=== PATIENT | female | born 1950 | race Caucasian/White ===

== ENCOUNTER 2016-12-14 18:47 | Emergency (ER) | payer BC, OTHER ==
[~2016-12-14] VITALS: Ht 157.5 cm; Wt 62.9 kg
[2016-12-14] MEDS ORDERED: OXYcodone/APAP 5/325MG TABLET ONE (19:19)
[2016-12-14] MEDS ORDERED: OXYcodone/APAP 5/325MG TABLET PO ONE (19:30)
[2016-12-14 21:42] VITALS: BP 158/89
== END 2016-12-14 21:45 | disposition home or self-care (01) ==
LOC: ED 21:10
DX: S40.011A Contusion of right shoulder, initial encounter (principal); S70.01XA Contusion of right hip, initial encounter; S40.021A Contusion of right upper arm, initial encounter; I10 Essential (primary) hypertension; E11.9 Type 2 diabetes mellitus without complications; W18.40XA Slipping, tripping and stumbling without falling, unspecified, initial encounter; Y93.89 Activity, other specified; Y92.89 Other specified places as the place of occurrence of the external cause; Y99.0 Civilian activity done for income or pay
CPT/HCPCS: 99284

== ENCOUNTER 2016-12-18 12:34 | Emergency (ER) | payer OTHER ==
[~2016-12-18] VITALS: Ht 157.5 cm; Wt 63.9 kg
[2016-12-18] MEDS ORDERED: IBUPROFEN 200 MG TABLET PO ONE (15:30)
[2016-12-18] MEDS ORDERED: IBUPROFEN 200 MG TABLET ONE (15:59)
== END 2016-12-18 17:19 | disposition home or self-care (01) ==
LOC: ED 17:13
DX: M25.411 Effusion, right shoulder (principal); I10 Essential (primary) hypertension; E11.9 Type 2 diabetes mellitus without complications
CPT/HCPCS: 99284

== ENCOUNTER 2017-01-13 10:29 | Emergency (ER) | payer BC, OTHER ==
[~2017-01-13] VITALS: Ht 157.5 cm; Wt 63.4 kg
[2017-01-13 10:37] VITALS: BP 151/91
== END 2017-01-13 11:08 | disposition left against medical advice (07) ==
LOC: ED 11:02
DX: M25.511 Pain in right shoulder (principal); Z53.21 Procedure and treatment not carried out due to patient leaving prior to being seen by health care provider

== ENCOUNTER 2017-07-19 11:40 | Emergency (ER) | payer BC ==
[~2017-07-19] VITALS: Ht 157.5 cm; Wt 63.6 kg
[2017-07-19 11:52] VITALS: BP 172/92
[2017-07-19] MEDS ORDERED: FLUCONAZOLE 100 MG TABLET PO ONE (12:30)
[2017-07-19 13:14] LABS: MICROSCOPIC AUTO
[2017-07-19 13:16] LABS: CULTURE INDICATED? YES
== END 2017-07-19 13:59 | disposition home or self-care (01) ==
LOC: ED 12:38
DX: B37.3 Candidiasis of vulva and vagina (principal); E11.65 Type 2 diabetes mellitus with hyperglycemia; I10 Essential (primary) hypertension
CPT/HCPCS: 81001; 82962; 87086; 99284

== ENCOUNTER 2018-05-02 08:08 | Inpatient (IN) | payer MEDICARE, BC ==
[~2018-05-02] VITALS: Ht 157.5 cm; Wt 66.1 kg
[2018-05-02] MEDS ORDERED: METFORMIN (08:43)
[2018-05-02] MEDS ORDERED: OXYB5TAB7 PO (08:43)
[2018-05-02] MEDS ORDERED: GLIP5TAB10 PO (08:43)
[2018-05-02] MEDS ORDERED: ONDANSETRON 2MG/ML, 2ML ONE (08:57)
[2018-05-02] MEDS ORDERED: ONDANSETRON 2MG/ML, 2ML IVPush ONE (09:00)
[2018-05-02] MEDS ORDERED: SODIUM CHLORIDE FLUSH 10ML SYR IVF ONE (09:00)
[2018-05-02 09:15] LABS: BASOPHILS % (AUTO) 0 % (0-1); EOSINOPHILS # (AUTO) 0.08 x10^3/uL (0-0.4); EOSINOPHILS % (AUTO) 1 % (1-7); LYMPHOCYTES # (AUTO) 0.94 x10^3/uL (1-3.4); LYMPHOCYTES % (AUTO) 6 % (22-44); MD NO; MEAN CORPUSCULAR HEMOGLOBIN 28.1 pg (27.0-34.8); MEAN CORPUSCULAR HGB CONC 33.4 g/dL (32.4-35.8); MEAN CORPUSCULAR VOLUME 84.2 fL (80-100); MEAN PLATELET VOLUME 8.7 fL (7.4-10.4); MONOCYTES # (AUTO) 1.02 x10^3/uL (0.2-0.8); MONOCYTES % (AUTO) 6 % (2-9); NEUTROPHILS % (AUTO) 88 % (42-75); PLATELET COUNT 211 x10^3/uL (130-400); RED BLOOD COUNT 5.17 x10^6/uL (3.82-5.3); RED CELL DISTRIBUTION WIDTH 12.6 % (9.6-15.2)
[2018-05-02 09:27] LABS: CULTURE INDICATED? YES; MICROSCOPIC INDICATED
[2018-05-02 09:27] LABS: ALBUMIN 3.8 g/dL (3.4-5.0); ANION GAP 9 mmol/L (5-15); CALCIUM 8.6 mg/dL (8.5-10.1); CHLORIDE 101 mmol/L (98-107); INTERNATIONAL NORMALIZED RATIO 0.99 (0.93-1.1); PROTHROMBIN TIME 10.3 Seconds (9.6-11.5)
[2018-05-02 09:31] LABS: ALANINE AMINOTRANSFERASE 32 U/L (12-78); ALKALINE PHOSPHATASE 135 U/L (45-117); BILIRUBIN,TOTAL 0.7 mg/dL (0.2-1.0); CREATININE 0.78 mg/dL (0.55-1.02); TOTAL PROTEIN 7.8 g/dL (6.4-8.2)
[2018-05-02] MEDS ORDERED: CEFTRIAXONE 1,000 MG in SODIUM CHLORIDE 0.9% 50 ML IVPB ONE (10:00)
[2018-05-02] MEDS ORDERED: SODIUM CHLORIDE 0.9% 1,000ML IVBOLUS ONE (10:00)
[2018-05-02] MEDS ORDERED: CEFTRIAXONE PMX 1GM/50ML 50 ML ONE (10:01)
[2018-05-02] MEDS ORDERED: SODIUM CHLORIDE 0.9% 1,000 ML IV ONE (10:07)
[2018-05-02 10:11] LABS: RAPID INFLUENZA A Negative (Negative); RAPID INFLUENZA B Negative (Negative)
[2018-05-02] MEDS ORDERED: SODIUM CHLORIDE FLUSH 10ML SYR IVF PRN (10:30)
[2018-05-02] MEDS ORDERED: ONDANSETRON ODT 4 MG PO PRN (11:00)
[2018-05-02] MEDS ORDERED: ACETAMINOPHEN 325 MG TABLET PO PRN (11:00)
[2018-05-02] MEDS ORDERED: ONDANSETRON 2MG/ML, 2ML IVPush PRN (11:00)
[2018-05-02 11:10] VITALS: BP 131/80
[2018-05-02 11:23] LABS: HEMOGLOBIN A1C 10.4 % (4.2-6.3)
[2018-05-02] MEDS: IBUPROFEN 600 MG TABLET PO PRN (12:30)
[2018-05-02] MEDS: HEPARIN 5,000 UNITS/ML, 1ML SQ SCH ×2 (12:30→22:27)
[2018-05-02 15:01] VITALS: BP 99/62
[2018-05-02] MEDS: INSULIN LISPRO 100 UNITS/ML, PEN SQ-INSULIN SCH ×3 (16:00→23:28)
[2018-05-02] MEDS: SODIUM CHLORIDE 0.9% 1,000 ML IV SCH (16:21)
[2018-05-02 19:04] VITALS: BP 101/62
[2018-05-02] MEDS: CEFTRIAXONE PMX 2GM/50ML 50 ML IV SCH (22:27)
[2018-05-03 01:12] VITALS: BP 121/74
[2018-05-03] MEDS: SODIUM CHLORIDE 0.9% 1,000 ML IV SCH ×3 (01:22→16:11)
[2018-05-03] MEDS: IBUPROFEN 600 MG TABLET PO PRN ×4 (01:22→22:08)
[2018-05-03 05:56] LABS: ALBUMIN 2.7 g/dL (3.4-5.0); ANION GAP 8 mmol/L (5-15); CALCIUM 7.6 mg/dL (8.5-10.1); CHLORIDE 112 mmol/L (98-107)
[2018-05-03 05:57] LABS: BASOPHILS # (AUTO) 0.02 x10^3/uL (0-0.1); BASOPHILS % (AUTO) 0 % (0-1); EOSINOPHILS % (AUTO) 1 % (1-7); LYMPHOCYTES # (AUTO) 2.07 x10^3/uL (1-3.4); LYMPHOCYTES % (AUTO) 21 % (22-44); MD NO; MEAN CORPUSCULAR HEMOGLOBIN 28.9 pg (27.0-34.8); MEAN CORPUSCULAR HGB CONC 33.9 g/dL (32.4-35.8); MEAN CORPUSCULAR VOLUME 85.4 fL (80-100); MONOCYTES # (AUTO) 1.06 x10^3/uL (0.2-0.8); MONOCYTES % (AUTO) 11 % (2-9); NEUTROPHILS % (AUTO) 67 % (42-75); PLATELET COUNT 145 x10^3/uL (130-400); RED BLOOD COUNT 3.97 x10^6/uL (3.82-5.3); RED CELL DISTRIBUTION WIDTH 13.2 % (9.6-15.2)
[2018-05-03 06:10] LABS: ALANINE AMINOTRANSFERASE 20 U/L (12-78); ALKALINE PHOSPHATASE 85 U/L (45-117); BILIRUBIN,TOTAL 0.5 mg/dL (0.2-1.0); CREATININE 0.67 mg/dL (0.55-1.02); TOTAL PROTEIN 5.9 g/dL (6.4-8.2)
[2018-05-03] MEDS: HEPARIN 5,000 UNITS/ML, 1ML SQ SCH ×3 (06:24→22:08)
[2018-05-03 07:02] VITALS: BP 118/69
[2018-05-03] MEDS: INSULIN LISPRO 100 UNITS/ML, PEN SQ-INSULIN SCH ×4 (08:27→22:09)
[2018-05-03 12:31] VITALS: BP 132/78
[2018-05-03 19:17] VITALS: BP 140/66
[2018-05-03] MEDS: CEFTRIAXONE PMX 2GM/50ML 50 ML IV SCH (21:55)
[2018-05-04] MEDS: SODIUM CHLORIDE 0.9% 1,000 ML IV SCH ×3 (01:05→16:00)
[2018-05-04 02:15] VITALS: BP 134/78
[2018-05-04 05:28] LABS: BASOPHILS # (AUTO) 0.01 x10^3/uL (0-0.1); BASOPHILS % (AUTO) 0 % (0-1); EOSINOPHILS # (AUTO) 0.15 x10^3/uL (0-0.4); EOSINOPHILS % (AUTO) 2 % (1-7); LYMPHOCYTES # (AUTO) 1.85 x10^3/uL (1-3.4); LYMPHOCYTES % (AUTO) 24 % (22-44); MD NO; MEAN CORPUSCULAR HEMOGLOBIN 28.7 pg (27.0-34.8); MEAN CORPUSCULAR HGB CONC 33.4 g/dL (32.4-35.8); MEAN CORPUSCULAR VOLUME 85.9 fL (80-100); MONOCYTES # (AUTO) 0.79 x10^3/uL (0.2-0.8); MONOCYTES % (AUTO) 10 % (2-9); NEUTROPHILS # (AUTO) 4.94 x10^3/uL (1.8-6.8); NEUTROPHILS % (AUTO) 64 % (42-75); PLATELET COUNT 152 x10^3/uL (130-400); RED BLOOD COUNT 4.31 x10^6/uL (3.82-5.3); RED CELL DISTRIBUTION WIDTH 12.8 % (9.6-15.2)
[2018-05-04 05:44] LABS: ANION GAP 8 mmol/L (5-15); CALCIUM 7.9 mg/dL (8.5-10.1); CHLORIDE 110 mmol/L (98-107); CREATININE 0.54 mg/dL (0.55-1.02)
[2018-05-04] MEDS: HEPARIN 5,000 UNITS/ML, 1ML SQ SCH ×2 (06:27→13:33)
[2018-05-04 06:59] VITALS: BP 149/90
[2018-05-04] MEDS: INSULIN LISPRO 100 UNITS/ML, PEN SQ-INSULIN SCH ×2 (07:43→11:28)
[2018-05-04 12:54] VITALS: BP 186/92
[2018-05-04 13:23] VITALS: BP 171/78
[2018-05-04] MEDS: IBUPROFEN 600 MG TABLET PO PRN (13:32)
[2018-05-04] MEDS ORDERED: CEFD300C37 PO (14:20)
[2018-05-04] MEDS ORDERED: POTASSIUM CHLORIDE 20 MEQ TAB.ER.PRT PO ONE (14:30)
[2018-05-04 14:40] VITALS: BP 154/88
== END 2018-05-04 17:15 | disposition home or self-care (01) | DRG 872 ==
LOC: ED 10:06 → EDIP 10:07 → ED 10:42 → 4NOR 11:17 → ED 13:20 → 4NOR 13:20 → DCLOUNGE 05-04 16:46
PROVIDERS: ADMIT Internal Medicine; ATTEND Internal Medicine
DX: A41.9 Sepsis, unspecified organism (principal); E87.1 Hypo-osmolality and hyponatremia; N10 Acute pyelonephritis; E87.2 Acidosis; I10 Essential (primary) hypertension; D64.9 Anemia, unspecified; E11.65 Type 2 diabetes mellitus with hyperglycemia; E83.39 Other disorders of phosphorus metabolism; E87.6 Hypokalemia; K80.20 Calculus of gallbladder without cholecystitis without obstruction; B95.2 Enterococcus as the cause of diseases classified elsewhere; B96.20 Unspecified Escherichia coli [E. coli] as the cause of diseases classified elsewhere; R65.10 Systemic inflammatory response syndrome (SIRS) of non-infectious origin without acute organ dysfunction; Z79.84 Long term (current) use of oral hypoglycemic drugs
CPT/HCPCS: 36415; 76700; 80048; 80053; 81001; 82962; 83036; 83605; 83690; 83735; 84100; 84145; 84443; 85025; 85610; 87040; 87077; 87086; 87186; 87400; 96374; 96375; 99285; G0378; J0696; J1644; J2405; J1815; J7030

== ENCOUNTER 2020-05-21 17:48 | Emergency (ER) | payer BC, OTHER ==
[~2020-05-21] VITALS: Ht 157.5 cm; Wt 62.1 kg
[~2020-05-21 17:48] MED LIST: CEFD300C37 PO; GLIP5TAB10 PO; METFORMIN; OXYB5TAB10 PO
--- NOTE | 2020-05-21 18:24 | NUR ---
PT HAS CO RUQ PAIN FOR 2 WEEKS. PT HAS BP. MAO CP, SOB OR VISION CHANGES OR [place]. DENIES HX OF HTN AND IS NOT ON ANY MEDICATION FOR HTN. PT PLACED ON CATCHER PLUG.
[2020-05-21 18:59] LABS: BASOPHILS % (AUTO) 1 % (0-1); EOSINOPHILS % (AUTO) 3 % (1-7); LYMPHOCYTES % (AUTO) 40 % (22-44); MEAN CORPUSCULAR HEMOGLOBIN 29.6 pg (27.0-34.8); MEAN CORPUSCULAR HGB CONC 34.5 g/dL (32.4-35.8); MEAN PLATELET VOLUME 9.2 fL (7.4-10.4); MONOCYTES % (AUTO) 7 % (2-9); NEUTROPHILS % (AUTO) 49 % (42-75); PLATELET COUNT 224 x10^3/uL (130-400); RED BLOOD COUNT 5.16 x10^6/uL (3.82-5.3); RED CELL DISTRIBUTION WIDTH 12.4 % (9.6-15.2)
[2020-05-21] MEDS ORDERED: HYDROmorphone 2 MG/ML, 1ML IVPush PRN (19:00)
[2020-05-21] MEDS ORDERED: SODIUM CHLORIDE FLUSH 10ML SYR IVF ONE (19:00)
--- NOTE | 2020-05-21 19:06 | NUR ---
Late entry for 1850: Report from TIERRA Albright. Pt in imaging.
[2020-05-21 19:10] LABS: ALBUMIN 4.3 g/dL (3.4-5.0); ANION GAP 8 mmol/L (5-15); CALCIUM 9.4 mg/dL (8.5-10.1); CHLORIDE 106 mmol/L (98-107)
[2020-05-21 19:16] LABS: ALANINE AMINOTRANSFERASE 28 U/L (12-78); ALKALINE PHOSPHATASE 126 U/L (45-117); BILIRUBIN,TOTAL 0.5 mg/dL (0.2-1.0); CREATININE 0.77 mg/dL (0.55-1.02); MD NO; TOTAL PROTEIN 8.4 g/dL (6.4-8.2)
[2020-05-21 19:53] LABS: MICROSCOPIC INDICATED
[2020-05-21] MEDS ORDERED: CEFOTETAN PMX 1GM/50ML 50 ML IVPB ONE (20:30)
[2020-05-21] MEDS ORDERED: FENTANYL PF 100 MCG/2ML ONE (21:03)
[2020-05-21] MEDS ORDERED: HYDROmorphone 1 MG/ML, 1ML INJ ONE (21:47)
[2020-05-21 22:36] VITALS: BP 156/90
--- NOTE | 2020-05-22 06:42 | NUR ---
LATE ENTRY SUMMARY NOTE: PT WAS TO BE ADMITTED FOR SX. PT'S RAPID COVID RESULTED POSITIVE. MD ALAMO MADE AWARE. MD ALAMO BACK TO BEDSIDE TO UPDATE PT ON POC. POC INCLUDES D/C WITH MEDICATIONS AND FOLLOW UP FOR SURGERY. ALL QUESTIONS ANSWERED, PT WITH NADN. FAMILY AT BEDSIDE.
== END 2020-05-21 22:38 | disposition home or self-care (01) ==
LOC: ED 19:43
DX: U07.1 COVID-19 (principal); K80.20 Calculus of gallbladder without cholecystitis without obstruction; I10 Essential (primary) hypertension; Z72.9 Problem related to lifestyle, unspecified; R94.31 Abnormal electrocardiogram [ECG] [EKG]; E11.9 Type 2 diabetes mellitus without complications
CPT/HCPCS: 36415; 74022; 76700; 80053; 81001; 83605; 83690; 85025; 87077; 87086; 87186; 87635; 93005; 96374; 99285; J1170; J3010

== ENCOUNTER 2020-05-29 11:29 | Inpatient (IN) | payer BC, OTHER ==
[~2020-05-29] VITALS: Ht 157.5 cm; Wt 60.3 kg
[2020-05-29 12:35] LABS: BASOPHILS % (AUTO) 1 % (0-1); EOSINOPHILS % (AUTO) 2 % (1-7); LYMPHOCYTES % (AUTO) 32 % (22-44); MEAN CORPUSCULAR HEMOGLOBIN 29.3 pg (27.0-34.8); MEAN CORPUSCULAR HGB CONC 33.9 g/dL (32.4-35.8); MEAN PLATELET VOLUME 9.1 fL (7.4-10.4); MONOCYTES % (AUTO) 7 % (2-9); NEUTROPHILS % (AUTO) 59 % (42-75); PLATELET COUNT 230 x10^3/uL (130-400); RED BLOOD COUNT 5.22 x10^6/uL (3.82-5.3); RED CELL DISTRIBUTION WIDTH 12.5 % (9.6-15.2)
[2020-05-29 12:36] LABS: MD NO
[2020-05-29 12:42] LABS: CHLORIDE 107 mmol/L (98-107)
[2020-05-29 12:47] LABS: ALANINE AMINOTRANSFERASE 26 U/L (12-78); ALBUMIN 4.1 g/dL (3.4-5.0); ALKALINE PHOSPHATASE 101 U/L (45-117); ANION GAP 4 mmol/L (5-15); BILIRUBIN,TOTAL 0.5 mg/dL (0.2-1.0); CALCIUM 9.6 mg/dL (8.5-10.1); CREATININE 0.65 mg/dL (0.55-1.02); TOTAL PROTEIN 8.1 g/dL (6.4-8.2)
[2020-05-29] MEDS ORDERED: MORPHINE SULFATE 4 MG/ML, 1ML IVPush PRN (15:30)
[2020-05-29] MEDS ORDERED: ONDANSETRON 2MG/ML, 2ML IVPush ONE (15:30)
[2020-05-29] MEDS ORDERED: MORPHINE SULFATE 4 MG/ML, 1ML ONE (15:30)
[2020-05-29] MEDS ORDERED: SODIUM CHLORIDE FLUSH 10ML SYR IVF ONE (15:30)
[2020-05-29] MEDS ORDERED: ONDANSETRON 2MG/ML, 2ML ONE (15:30)
--- NOTE | 2020-05-29 16:42 | NUR ---
patient arrives with abdominal pain for 13. she states was suppose to have surgery today for gallbladder. Addendum: 05/29/20 at 1844 by MIREILLE patient arrives with 13 days abdominal pain
[2020-05-29] MEDS ORDERED: OMNIPAQUE 350 MG/ML, 100ML BOTTLE ONE (17:07)
[2020-05-29 18:04] LABS: MICROSCOPIC INDICATED
--- NOTE | 2020-05-29 18:16 | NUR ---
angelina at bedside.
--- NOTE | 2020-05-29 19:08 | NUR ---
report to kenan
--- NOTE | 2020-05-29 19:14 | NUR ---
report and care received on pt. pt comfortable and resting, on cr monitor. no distress at this time.
[2020-05-29] MEDS ORDERED: ONDANSETRON 2MG/ML, 2ML IVPush PRN (21:30)
[2020-05-29] MEDS ORDERED: PROMETHAZINE 25 MG/ML, 1ML IM PRN (21:30)
[2020-05-29] MEDS ORDERED: hydrALAzine 20 MG/ML, 1ML IVPush PRN (21:30)
[2020-05-29] MEDS ORDERED: HYDROmorphone 2 MG/ML, 1ML IVPush PRN (21:30)
[2020-05-29 21:45] LABS: INTERNATIONAL NORMALIZED RATIO 1.01 (0.93-1.1); PROTHROMBIN TIME 10.7 Seconds (9.6-11.5)
[2020-05-29 22:23] VITALS: BP 178/91
[2020-05-29] MEDS: CEFTRIAXONE PMX 1GM/50ML 50 ML IV SCH (22:41)
[2020-05-29 22:50] VITALS: BP 120/77
[2020-05-30 01:28] VITALS: BP 126/81
[2020-05-30] MEDS: OXYcodone IR 5MG TABLET PO PRN ×2 (03:03→19:47)
[2020-05-30] MEDS ORDERED: OMNIPAQUE 350 MG/ML, 75ML BOTTLE ONE (03:04)
[2020-05-30 06:25] LABS: BASOPHILS % (AUTO) 0 % (0-1); EOSINOPHILS % (AUTO) 3 % (1-7); LYMPHOCYTES % (AUTO) 23 % (22-44); MEAN CORPUSCULAR HEMOGLOBIN 29.1 pg (27.0-34.8); MEAN CORPUSCULAR HGB CONC 33.5 g/dL (32.4-35.8); MEAN PLATELET VOLUME 9.1 fL (7.4-10.4); MONOCYTES % (AUTO) 7 % (2-9); NEUTROPHILS % (AUTO) 67 % (42-75); PLATELET COUNT 216 x10^3/uL (130-400); RED BLOOD COUNT 5.01 x10^6/uL (3.82-5.3); RED CELL DISTRIBUTION WIDTH 12.6 % (9.6-15.2)
[2020-05-30 06:28] LABS: MD NO
[2020-05-30 06:37] LABS: CHLORIDE 106 mmol/L (98-107)
[2020-05-30 06:44] LABS: ALANINE AMINOTRANSFERASE 26 U/L (12-78); ALBUMIN 3.7 g/dL (3.4-5.0); ALKALINE PHOSPHATASE 84 U/L (45-117); ANION GAP 8 mmol/L (5-15); BILIRUBIN,TOTAL 0.6 mg/dL (0.2-1.0); CALCIUM 8.9 mg/dL (8.5-10.1); CREATININE 0.74 mg/dL (0.55-1.02); TOTAL PROTEIN 7.6 g/dL (6.4-8.2)
[2020-05-30 06:56] VITALS: BP 126/81
[2020-05-30] MEDS: INSULIN LISPRO 100 UNITS/ML, PEN SQ-INSULIN SCH ×4 (07:00→19:54)
[2020-05-30] MEDS: SENNA/DOCUSATE TABLET PO SCH (09:28)
[2020-05-30 12:12] VITALS: BP 127/80
[2020-05-30 19:21] VITALS: BP 135/77
[2020-05-30] MEDS: CEFTRIAXONE PMX 1GM/50ML 50 ML IV SCH (21:16)
[2020-05-31] VITALS (13 sets, daily range): BP systolic 120–171; BP diastolic 69–96
[2020-05-31 06:01] LABS: BASOPHILS % (AUTO) 1 % (0-1); EOSINOPHILS % (AUTO) 4 % (1-7); LYMPHOCYTES % (AUTO) 34 % (22-44); MEAN CORPUSCULAR HEMOGLOBIN 29.1 pg (27.0-34.8); MEAN CORPUSCULAR HGB CONC 33.7 g/dL (32.4-35.8); MEAN PLATELET VOLUME 9.1 fL (7.4-10.4); MONOCYTES % (AUTO) 8 % (2-9); NEUTROPHILS % (AUTO) 55 % (42-75); PLATELET COUNT 198 x10^3/uL (130-400); RED BLOOD COUNT 4.93 x10^6/uL (3.82-5.3); RED CELL DISTRIBUTION WIDTH 12.4 % (9.6-15.2)
[2020-05-31 06:02] LABS: MD NO
[2020-05-31 06:16] LABS: ANION GAP 5 mmol/L (5-15); CALCIUM 8.8 mg/dL (8.5-10.1); CHLORIDE 106 mmol/L (98-107)
[2020-05-31] MEDS: INSULIN LISPRO 100 UNITS/ML, PEN SQ-INSULIN SCH ×4 (07:00→20:28)
[2020-05-31] MEDS: SENNA/DOCUSATE TABLET PO SCH (09:29)
[2020-05-31] MEDS ORDERED: BUPIVACAINE/PF 0.5% ONE (11:03)
[2020-05-31] MEDS ORDERED: CHLORHEXIDINE 15 ML UDC MM ONE (11:30)
[2020-05-31] MEDS ORDERED: HYDROcodone/APAP 7.5-325MG/15ML UDC PO PRN (11:30)
[2020-05-31] MEDS ORDERED: OXYcodone 5 MG/5 ML ORAL.SOL UDC PO PRN (11:30)
[2020-05-31] MEDS ORDERED: MEPERIDINE/PF 25MG/0.5ML IVPush PRN (11:30)
[2020-05-31] MEDS ORDERED: MIDAZOLAM 1 MG/ML, 2ML ONE (11:56)
[2020-05-31] MEDS ORDERED: ONDANSETRON 2MG/ML, 2ML ONE (12:01)
[2020-05-31] MEDS ORDERED: DEXAMETHASONE 4 MG/ML, 1ML ONE (12:01)
[2020-05-31] MEDS ORDERED: ROCURONIUM 10 MG/ML,10ML ONE (12:01)
[2020-05-31] MEDS ORDERED: SUCCINYLCHOLINE 20 MG/ML, 10ML ONE (12:01)
[2020-05-31] MEDS ORDERED: CEFAZOLIN 1,000 MG ONE (12:01)
[2020-05-31] MEDS ORDERED: hydrALAzine 20 MG/ML, 1ML ONE (12:01)
[2020-05-31] MEDS ORDERED: FENTANYL PF 100 MCG/2ML ONE ×2 (12:22→13:13)
[2020-05-31] MEDS ORDERED: OXYcodone 5 MG/5 ML ORAL.SOL UDC ONE (13:14)
[2020-05-31] MEDS ORDERED: HYDROmorphone 1 MG/ML, 1ML INJ ONE (13:14)
[2020-05-31] MEDS: FENTANYL PF 100 MCG/2ML IV PRN ×2 (13:16→13:22)
[2020-05-31] MEDS ORDERED: PROMETHAZINE 25 MG/ML, 1ML ONE (13:34)
[2020-05-31] MEDS: PROMETHAZINE 25 MG/ML, 1ML IVPush PRN ×2 (13:36→14:33)
[2020-05-31] MEDS: HYDROmorphone 1 MG/ML, 1ML INJ IVPush PRN ×2 (13:43→14:01)
[2020-05-31] MEDS: OXYcodone IR 5MG TABLET PO PRN (20:15)
[2020-05-31] MEDS: CEFTRIAXONE PMX 1GM/50ML 50 ML IV SCH (20:32)
[2020-06-01 01:12] VITALS: BP 108/71
[2020-06-01] MEDS: OXYcodone IR 5MG TABLET PO PRN ×4 (01:12→21:11)
[2020-06-01 04:12] LABS: BASOPHILS % (AUTO) 0 % (0-1); EOSINOPHILS % (AUTO) 0 % (1-7); LYMPHOCYTES % (AUTO) 7 % (22-44); MEAN CORPUSCULAR HEMOGLOBIN 29.5 pg (27.0-34.8); MEAN CORPUSCULAR HGB CONC 34.3 g/dL (32.4-35.8); MEAN PLATELET VOLUME 9.3 fL (7.4-10.4); MONOCYTES % (AUTO) 9 % (2-9); NEUTROPHILS % (AUTO) 84 % (42-75); PLATELET COUNT 223 x10^3/uL (130-400); RED BLOOD COUNT 4.85 x10^6/uL (3.82-5.3); RED CELL DISTRIBUTION WIDTH 12.7 % (9.6-15.2)
[2020-06-01 04:15] LABS: ALANINE AMINOTRANSFERASE 55 U/L (12-78); ALBUMIN 3.5 g/dL (3.4-5.0); ANION GAP 9 mmol/L (5-15); CALCIUM 8.6 mg/dL (8.5-10.1); CHLORIDE 105 mmol/L (98-107); CREATININE 0.86 mg/dL (0.55-1.02); MD NO
[2020-06-01 04:17] LABS: ALKALINE PHOSPHATASE 80 U/L (45-117); BILIRUBIN,TOTAL 0.4 mg/dL (0.2-1.0); TOTAL PROTEIN 7.5 g/dL (6.4-8.2)
[2020-06-01] MEDS: INSULIN LISPRO 100 UNITS/ML, PEN SQ-INSULIN SCH ×4 (07:00→21:20)
[2020-06-01] MEDS: SENNA/DOCUSATE TABLET PO SCH (08:33)
[2020-06-01 09:31] VITALS: BP 116/79
[2020-06-01 13:57] VITALS: BP 125/78
[2020-06-01 19:41] VITALS: BP 117/74
[2020-06-01] MEDS: CEFTRIAXONE PMX 1GM/50ML 50 ML IV SCH (21:14)
[2020-06-02 01:24] VITALS: BP 127/78
[2020-06-02] MEDS: OXYcodone IR 5MG TABLET PO PRN ×3 (01:30→18:01)
[2020-06-02 05:52] LABS: BASOPHILS % (AUTO) 0 % (0-1); EOSINOPHILS % (AUTO) 0 % (1-7); LYMPHOCYTES % (AUTO) 14 % (22-44); MEAN CORPUSCULAR HEMOGLOBIN 29.2 pg (27.0-34.8); MEAN CORPUSCULAR HGB CONC 33.8 g/dL (32.4-35.8); MEAN PLATELET VOLUME 8.8 fL (7.4-10.4); MONOCYTES % (AUTO) 8 % (2-9); NEUTROPHILS % (AUTO) 78 % (42-75); PLATELET COUNT 202 x10^3/uL (130-400); RED BLOOD COUNT 4.42 x10^6/uL (3.82-5.3); RED CELL DISTRIBUTION WIDTH 12.6 % (9.6-15.2)
[2020-06-02 06:02] LABS: ANION GAP 6 mmol/L (5-15); CALCIUM 8.5 mg/dL (8.5-10.1); CHLORIDE 103 mmol/L (98-107)
[2020-06-02 06:04] LABS: CREATININE 0.65 mg/dL (0.55-1.02)
[2020-06-02 06:21] LABS: MD NO
[2020-06-02] MEDS: INSULIN LISPRO 100 UNITS/ML, PEN SQ-INSULIN SCH ×4 (07:00→19:36)
[2020-06-02 08:27] VITALS: BP 109/69
[2020-06-02] MEDS: SENNA/DOCUSATE TABLET PO SCH (10:23)
[2020-06-02 12:42] VITALS: BP 109/72
[2020-06-02 19:31] VITALS: BP 123/78
[2020-06-02] MEDS: CEFTRIAXONE PMX 1GM/50ML 50 ML IV SCH (19:43)
[2020-06-02] MEDS: ACETAMINOPHEN 325 MG TABLET PO PRN (19:44)
[2020-06-03 01:49] VITALS: BP 111/70
[2020-06-03 06:00] LABS: BASOPHILS % (AUTO) 0 % (0-1); EOSINOPHILS % (AUTO) 2 % (1-7); LYMPHOCYTES % (AUTO) 21 % (22-44); MEAN CORPUSCULAR HEMOGLOBIN 29.2 pg (27.0-34.8); MEAN PLATELET VOLUME 8.8 fL (7.4-10.4); MONOCYTES % (AUTO) 7 % (2-9); NEUTROPHILS % (AUTO) 70 % (42-75); PLATELET COUNT 197 x10^3/uL (130-400); RED BLOOD COUNT 4.49 x10^6/uL (3.82-5.3); RED CELL DISTRIBUTION WIDTH 12.4 % (9.6-15.2)
[2020-06-03 06:07] LABS: ANION GAP 3 mmol/L (5-15); CALCIUM 8.8 mg/dL (8.5-10.1); CHLORIDE 102 mmol/L (98-107); CREATININE 0.53 mg/dL (0.55-1.02)
[2020-06-03 06:13] LABS: MD NO
[2020-06-03] MEDS: SENNA/DOCUSATE TABLET PO SCH (07:27)
[2020-06-03 07:31] VITALS: BP 132/83
[2020-06-03] MEDS: INSULIN LISPRO 100 UNITS/ML, PEN SQ-INSULIN SCH ×4 (09:23→19:27)
[2020-06-03] MEDS: LACTOBACILLUS CHEW TABLET PO SCH ×3 (09:24→19:27)
[2020-06-03] MEDS: DEXAMETHASONE 4 MG/ML, 1ML IVPush SCH (09:24)
[2020-06-03 13:26] VITALS: BP 160/90
[2020-06-03] MEDS: ACETAMINOPHEN 325 MG TABLET PO PRN (16:16)
[2020-06-03 19:18] VITALS: BP 128/79
[2020-06-03] MEDS: OXYcodone IR 5MG TABLET PO PRN (19:27)
[2020-06-04 00:46] VITALS: BP 134/73
[2020-06-04] MEDS: INSULIN LISPRO 100 UNITS/ML, PEN SQ-INSULIN SCH ×2 (07:00→11:37)
[2020-06-04 07:19] VITALS: BP 153/62
[2020-06-04] MEDS: SENNA/DOCUSATE TABLET PO SCH (07:43)
[2020-06-04] MEDS: LACTOBACILLUS CHEW TABLET PO SCH (07:44)
[2020-06-04] MEDS: DEXAMETHASONE 4 MG/ML, 1ML IVPush SCH (07:44)
[2020-06-04] MEDS: OXYcodone IR 5MG TABLET PO PRN (11:32)
[2020-06-04 13:23] VITALS: BP 143/81
[2020-06-04] MEDS ORDERED: OXYC5TAB3 PO (13:47)
== END 2020-06-04 16:27 | disposition home health service (06) | DRG 417 ==
LOC: ED 16:38 → EDIP 18:04 → 3N 20:49
PROVIDERS: ADMIT Family Medicine; ATTEND Internal Medicine
PROC: 0FT44ZZ Resection of Gallbladder, Percutaneous Endoscopic Approach (ICD-10-PCS; principal; 2020-05-31 14:00)
DX: K80.20 Calculus of gallbladder without cholecystitis without obstruction (principal); J96.01 Acute respiratory failure with hypoxia; N39.0 Urinary tract infection, site not specified; Z20.828 Contact with and (suspected) exposure to other viral communicable diseases; B96.20 Unspecified Escherichia coli [E. coli] as the cause of diseases classified elsewhere; I10 Essential (primary) hypertension; Z83.3 Family history of diabetes mellitus; Z86.19 Personal history of other infectious and parasitic diseases; Z87.891 Personal history of nicotine dependence; Z90.49 Acquired absence of other specified parts of digestive tract; Z90.710 Acquired absence of both cervix and uterus; Z79.84 Long term (current) use of oral hypoglycemic drugs; Z98.51 Tubal ligation status; Z79.899 Other long term (current) drug therapy
CPT/HCPCS: 36415; 96374; 96375; 99285; S0020; 71045; 71260; 74177; 74181; 76700; 80048; 80053; 81001; 82962; 83036; 83690; 85025; 85610; 87077; 87086; 87186; 88304; G0378; J0690; J0696; J1100; J1170; J2250; J2405; J2550; J3010; Q9967; J0330; J0360; J1815; J2270; U0003